=== PATIENT | female | born 1995 | race Caucasian/White ===

== ENCOUNTER 2019-10-06 09:43 | Outpatient (CLI) | payer MEDICAID, SELFPAY ==
--- NOTE | 2019-10-06 10:42 | MR_ITS ---
WS: [id number] MRI BRAIN/orbits WITH AND WITHOUT CONTRAST HISTORY: PSEUDOTUMOR, LEFT vision loss and headaches. COMPARISON: CT head 12/04/2013. TECHNIQUE: Multiplanar imaging performed through the brain with Prohance 17 ml's IV. No acute infarcts are seen. Rojas-white matter differentiation is well preserved. No susceptibility artifacts or prior lacunar infarcts. Visualized posterior fossa and brainstem are also normal. No intraocular protrusion of the optic nerve heads. There is no flattening of the posterior globes. T here is slight CSF widening around the LEFT optic nerve, best seen on the axial T2 sequence.. Partial ly empty sella turcica. Ventricles are also slitlike. Mild early tortuosity of the optic nerves. Intr aocular muscles are normal. No enhancement along the optic nerve sheaths. No mass. Postcontrast images are negative for masses or vascular malformations. Dural venous sinuses are normal. Paranasal sinuses: Well aerated with no significant disease. Mastoid air cells: Normal. Calvarium and scalp: Normal. MR/MR head orbits wo/w* 03162/[id number] IMPRESSION: 1. There are MRI imaging features suggestive of mild idiopathic intracranial h ypertension. 2. No mass or abnormal enhancement. 3. No significant atrophy.
== END 2019-10-06 09:44 | disposition home or self-care (01) ==
LOC: RADSHAW 09:47
PROVIDERS: Family Provider Family Medicine; PCP Family Medicine; Visit Provider Ophthalmology
DX: G93.2 Benign intracranial hypertension (principal)
CPT/HCPCS: 70543; 70553; A9579

== ENCOUNTER → 2019-10-25 10:42 | Day surgery (SDC) | payer MEDICAID, SELFPAY ==
[2019-10-25 11:31] VITALS: BMI 41.3
[2019-10-25 11:32] VITALS: BP 152/78; PULSE 78; RESP 18; TEMP 37.2; O2SAT 98
--- NOTE | 2019-10-25 12:04 | ANES.PREANE2 ---
Pre-Anesthetic Assessment Pre-Anesthetic Assessment: Height/Weight: Height 1.8 m Weight 134.263 kg Temp Pulse Resp BP Pulse Ox 99.0 F 78 18 152/78 98 10/25/19 11:32 10/25/19 11:32 10/25/19 11:32 10/25/19 11:32 10/25/19 11:32 Preop Diagnosis: papilledema Proposed Procedure: spinal tap Last Intake: 23:00 Social: Packs per day: 1/2 Pack years: 09/18 Exam: Pre-Anes Outpt Exam: alert, oriented x 3, clear to auscultation bilaterally and regular rate & rhythm Airway: Submandibular: WNL Cervical ROM: WNL MP: 1 Dentition: Caps Musc/skel: Musc/skel: Lower Back Pain Neuropsych: Neuropsych: CRUMP Anesthetic Plan: ASA status: 3 Anesthesia: Nurse-admin mod sedation PFSH Anesthesia PFSH: Family History (Updated 10/25/19 @ 11:41 by Shreya Silva) Other Arthritis Cervical cancer Diabetes Social History (Updated 10/25/19 @ 11:41 by Shreya Silva) Smoking and tobacco status: never smoked Data Anesthesia Cardiac Studies: No Data to Display
[2019-10-25 12:30] VITALS: BP 152/78; PULSE 78; RESP 18; TEMP 37.2; O2SAT 98
[2019-10-25] MEDS: sodium chloride 0.9% 1,000 ML 30 ML IV (12:40)
[2019-10-25] MEDS: midazolam 1 mg/mL INJ 5 ML 5 MG IVP (12:51)
[2019-10-25 12:53] VITALS: RESP 18; O2SAT 97
[2019-10-25] MEDS: fentaNYL 50 mcg/mL INJ 2mL 100 MCG IVP (12:53)
--- NOTE | 2019-10-25 13:20 | P.ANES_ITS ---
Anesthesia Procedures Procedure/Date: 10/25/19 Spinal tap for Opening CSF pressures Procedure Narrative: Requested by Dr. Mathias to perform a spinal tap for opening CSF pressures. Complete h&P, no anticoagulants/bleeding disorders. R&B's of spinal tap disc'd. Verbal and written consent obtained. Pt requested sedation. Versed 2+1+1+1mg, Fentanyl 50+50ug. Approximately L34 attempted without success. Performed at L45 without difficulty. 22g needle. Opening pressu re [address] Mathias notified. Pt kept supine/motionless for 40 minutes. Lumbar Puncture: Time Out Performed: Yes Consent: requested by attending/covering physician, from patient, risks and benefits reviewed and patient agrees to proceed Patient Position: left lateral decubitus Skin Prep: Povidone-Iodine 1% Local anesthetic used: Lidocaine 1% Amount of anesthesia used (mL): 5 Spinal Needle Gauge: 22G Interspace Used: L4-L5 Opening Pressure (cmH20): 22 Fluid Initially Obtained: bloody Complications: none
[2019-10-25 14:00] VITALS: BP 152/78; PULSE 78; RESP 18; TEMP 37.2; O2SAT 98
[2022-04-18] VITALS (8 sets, daily range): BP systolic 127–138; BP diastolic 59–65; PULSE 72–80; RESP 17; TEMP 36.1
[2022-04-19 10:22] VITALS: BP 120/76; PULSE 97; TEMP 36.2
== END ==
PROVIDERS: Family Provider Family Medicine; PCP Family Medicine; Visit Provider Family Medicine
DX: H47.10 Unspecified papilledema (principal)
CPT/HCPCS: 62270; 96374; 96375; J0330; J1885; J2250; J2704; J3010; J3535; J7030

== ENCOUNTER 2019-10-25 19:12 | Emergency (ER) | payer MEDICAID, SELFPAY ==
[2019-10-25 19:15] VITALS: BP 151/82; PULSE 94; RESP 18; TEMP 36.7; O2SAT 96; BMI 37.0
--- NOTE | 2019-10-25 23:29 | PC.NURSE ---
Called for patient to take back to room for evaluation, no answer at [phone]
== END 2019-10-25 23:41 | disposition left against medical advice (07) ==
LOC: ER 20:33
PROVIDERS: Emergency Provider Emergency Medicine; Family Provider Family Medicine; PCP Family Medicine
DX: Z53.21 Procedure and treatment not carried out due to patient leaving prior to being seen by health care provider (principal)
CPT/HCPCS: 99281

== ENCOUNTER 2019-12-15 19:51 | Emergency (ER) | payer MEDICAID, SELFPAY ==
[2019-12-15 19:53] VITALS: BP 149/91; PULSE 78; RESP 16; TEMP 36.8; O2SAT 97; BMI 40.4
--- NOTE | 2019-12-15 19:56 | W.ED.ABDPA2 ---
HPI - Abdominal Pain General: Chief Complaint: Abdominal Pain Stated Complaint: abd pain Time Seen by Provider: 12/15/19 19:56 Source: patient Mode of arrival: ambulatory Limitations: no limitations History of Present Illness: HPI narrative: 24-year-old female comes in today with complaints of pelvic pain and discomfort. Patient reports she has been having some mild cramping for the last 5 days. Patient is 10 weeks . Patient states that 4 days ago she had some mild bleeding but it passed and she thought it might not be abnormal. Today she started having more increased abdominal discomfort. Patient appears well. Patient appears in mild pain. Patient sees Dr. Mathias for her obstetric care. Patient reports 6 pregnancies with 3 live births. MD elicited complaint: abdominal pain Related Data: Date of Last Menstrual Period: 09/11/19 Review of Systems General: Reports: 10 or more systems reviewed and unremarkable except in HPI and below : Reports: pelvic pain PFSH ED PFSH: Family History (Updated 10/25/19 @ 11:41 by Shreya Silva) Other Arthritis Cervical cancer Diabetes Social History (Updated 10/25/19 @ 11:41 by Shreya Silva) Smoking and tobacco status: current every day smoker Female Reproductive History: Date of last menstrual period: 09/11/19 Physical Exam Const: COMMON NORMALS: no apparent distress and oriented x3 GENERAL APPEARANCE: cooperative HENMT: COMMON NORMALS: normocephalic, external ears normal, EAC's normal, TM's normal bilaterally and external nose normal HEAD & SCALP: normal to inspection and normocephalic FACE & SINUS: normal facial exam NOSE: external nose normal GENERAL EAR: hearing not grossly impaired EXTERNAL EAR: Yes external ears normal EXTERNAL AUDITORY CANAL: EAC's normal TYMPANIC MEMBRANE: TM's normal bilaterally MOUTH: oral and palatal mucosa normal THROAT: posterior oropharynx normal Eye: COMMON NORMALS: PERRL and EOMs intact bilaterally PUPIL: Yes PERRL Neck/C-Spine: COMMON NORMALS: full ROM and no lymphadenopathy Lymph: LYMPHATIC: no lymphedema noted Chest: COMMONS NORMALS: inspection of chest normal and palpation of chest normal Resp: COMMON NORMALS: normal respiratory effort and clear to auscultation bilaterally AUSCULTATION: clear to auscultation bilaterally Cardio: COMMON NORMALS: regular rate and regular rhythm RATE: regular rate RHYTHM: regular rhythm GI: COMMON NORMALS: normal to inspection, nondistended, normoactive bowel sounds and non-tender : COMMON NORMALS: Yes no CVA tenderness BLADDER/KIDNEY EXAM: Yes no CVA tenderness Back/Pelvis: COMMON NORMALS: no CVA tenderness and thoracic and lumbar spine normal to inspection Extremity: COMMON NORMALS: normal to inspection GENERAL: No edema Neuro: COMMON NORMALS: oriented x3, moves all extremities and no focal motor deficits Psych: COMMON NORMALS: mental status grossly normal and cooperative Skin: COMMON NORMALS: no rashes or lesions noted GENERAL SKIN EXAM: no rashes or lesions noted Course Vital Signs: Vital signs: Vital Signs Temperature 98.2 F 12/15/19 19:53 Pulse Rate 80 12/15/19 21:57 Respiratory Rate 16 12/15/19 19:53 Blood Pressure 130/63 12/15/19 21:57 Pulse Oximetry 100 12/15/19 21:57 MDM - Abdominal Pain MDM Narrative: Medical decision making narrative: Patient comes in today with complaints of pelvic discomfort. Patient reported pelvic discomfort started about 5 days ago. Patient had one episode of bleeding that was noted. Patient believes she is about 10 weeks . Respirations are even lungs are clear to auscultation. Abdomen soft nontender. No CVA tenderness. Patient moves all extremities well. Vital signs are normal. Differential diagnosis includes threatened , urinary tract infection, renal calculi. Lab appears well, Sodium is noted to mildly low, urine notes some light rbc's but no wbc's. Patient was given one liter of NS, encourage fluids and healthy diet. Recommend f/u with primary care. Patient reports understanding Lab Data: Labs: Lab Results 12/15/19 12/15/19 12/15/19 Range/Units 20:25 20:25 20:25 WBC 9.6 (4.0-10.0) 10^3/ uL RBC 4.33 (4.1-5.3) 10^6/u L Hgb 13.1 (11.5-15.3) g/dL Hct 41.0 (37.0-47.0) % MCV 94.7 (81-99) fL MCH 30.3 (28.0-34.0) pg MCHC 32.0 (30.0-36.0) g/dL RDW 13.0 (12.1-15.1) % Plt Count 381 (130-400) 10^3/c mm MPV 9.6 (7.4-10.4) fL Neut % (Auto) 66.5 % Lymph % (Auto) 28.1 % [place] % (Auto) 4.0 % Eos % (Auto) 1.0 % Baso % (Auto) 0.2 % Neut # (Auto) 6.4 (1.8-7.7) 10^3/u L Lymph # (Auto) 2.7 (0.8-4.8) 10^3/u L [place] # (Auto) 0.4 (0.2-0.9) 10^3/u L Eos # (Auto) 0.1 (0.0-0.8) 10^3/u L Baso # (Auto) 0.0 (0.0-0.1) 10^3/u L Nucleated RBC % (a uto) 0 % Nucleated RBCs # 0.0 /100WBC Sodium 134 L (136-145) mmol/L Potassium 3.8 (3.5-5.1) mmol/L Chloride 99 (98-107) mmol/L Carbon Dioxide 22 (22-29) mmol/L Anion Gap 16.8 (5-19) BUN 11 (6-20) mg/dL Creatinine 0.6 (0.5-0.9) mg/dL GFR Calculation 121.8 (90-130) mL/min Glucose 125 H (65-115) mg/dL Calculated Osmolal ity 276 L (285-295) mOsm/k g Calcium 10.0 (8.5-10.5) mg/dL Total Bilirubin 0.2 (0.15-1.2) mg/dL AST 20 (0-32) U/L ALT 15 (0-33) U/L Alkaline Phosphata se 73 (35-105) IU/L Total Protein 7.3 (6.6-8.7) g/dL Albumin 4.2 (3.5-5.2) g/dL Globulin 3.1 (1.3-4.6) g/dL Ser , [place] [address].00 mIU/mL Urine Color (Yellow) Urine Appearance (CLEAR) Urine pH (5-7) Ur Specific Gravit y (1.005-1.030) Urine Protein (Negative) Urine Glucose (UA) (Normal) Urine Ketones (Negative) Urine Blood (Negative) Urine Nitrate (Negative) Urine Bilirubin (NEGATIVE) Urine Urobilinogen (Negative) mg/dL Ur Leukocyte Preeti ase (Negative) Urine RBC (0-2) /hpf Urine WBC (0-5) /hpf Ur Squamous Epith Cells (0-5) Urine Bacteria (NONE) Blood Type A Positive Rho(D) Type Positive 12/15/19 Range/Units 20:30 WBC (4.0-10.0) 10^3/ uL RBC (4.1-5.3) 10^6/u L Hgb (11.5-15.3) g/dL Hct (37.0-47.0) % MCV (81-99) fL MCH (28.0-34.0) pg MCHC (30.0-36.0) g/dL RDW (12.1-15.1) % Plt Count (130-400) 10^3/c mm MPV (7.4-10.4) fL Neut % (Auto) % Lymph % (Auto) % [place] % (Auto) % Eos % (Auto) % Baso % (Auto) % Neut # (Auto) (1.8-7.7) 10^3/u L Lymph # (Auto) (0.8-4.8) 10^3/u L [place] # (Auto) (0.2-0.9) 10^3/u L Eos # (Auto) (0.0-0.8) 10^3/u L Baso # (Auto) (0.0-0.1) 10^3/u L Nucleated RBC % (a uto) % Nucleated RBCs # /100WBC Sodium (136-145) mmol/L Potassium (3.5-5.1) mmol/L Chloride (98-107) mmol/L Carbon Dioxide (22-29) mmol/L Anion Gap (5-19) BUN (6-20) mg/dL Creatinine (0.5-0.9) mg/dL GFR Calculation (90-130) mL/min Glucose (65-115) mg/dL Calculated Osmolal ity (285-295) mOsm/k g Calcium (8.5-10.5) mg/dL Total Bilirubin (0.15-1.2) mg/dL AST (0-32) U/L ALT (0-33) U/L Alkaline Phosphata se (35-105) IU/L Total Protein (6.6-8.7) g/dL Albumin (3.5-5.2) g/dL Globulin (1.3-4.6) g/dL Ser , Sharif i-Qnt mIU/mL Urine Color Yellow (Yellow) Urine Appearance Clear (CLEAR) Urine pH 5 (5-7) Ur Specific Gravit y 1.020 (1.005-1.030) Urine Protein Neg (Negative) Urine Glucose (UA) Norm (Normal) Urine Ketones Negative (Negative) Urine Blood 2+ H (Negative) Urine Nitrate Negative (Negative) Urine Bilirubin Neg (NEGATIVE) Urine Urobilinogen Norm (Negative) mg/dL Ur Leukocyte Pereti ase Negative (Negative) Urine RBC 5-10 H (0-2) /hpf Urine WBC None (0-5) /hpf Ur Squamous Epith Cells 10-15 H (0-5) Urine Bacteria Trace (NONE) Blood Type Rho(D) Type Discharge Plan Discharge Patient Disposition: Home, Self-Care Clinical Impression: Threatened in early Condition: Stable Prescriptions: New ondansetron HCl 4 mg tablet 4 mg PO Q8H PRN (Reason: nausea and vomiting) Qty: 10 RF: 0 No Action prenat.vits,alison,[id number] Tablet 1 tab PO DAILY RF: 0 Durezol 0.05 % drops See Rx Instructions .ROUTE .COMPLEX RF: 0 ibuprofen 200 mg Tablet 800 mg PO Q6H PRN (Reason: Headache) RF: 0 acetaminophen [Acetaminophen Extra Strength] 500 mg Tablet 500 mg PO Q6H PRN (Reason: Headache) RF: 0 Discharge Orders: Discharge Order (Routine); Ordered 12/15/19 Ordered By: Conrad Mejía Referrals: Marvin Mathias MD [Primary Care Provider] - Conrad Vera [Family Provider] - Discharge Diet: Usual diet Discharge Activity: Increase activity as tolerated Patient Instructions: Threatened Miscarriage (ED) Activity Restrictions/Additional Instructions: Drink plenty of fluids Healthy diet and exercise Pelvic rest for any bleeding Return to ER for worsening pain, fever, increase in bleeding more than 1 pad within one hour Follow-up with primary care office in morning for appointment follow-up Coding Level of Care Code ED Knot Cutter for Chg Fwd Exam Comprehensive
--- NOTE | 2019-12-15 20:01 | US_ITS ---
WS: [id number] EARLY OBSTETRICAL ULTRASOUND (<14 WEEKS). HISTORY: viability, abd cramping, bleeding COMPARISON: None available. Single intrauterine gestational sac is identified. Cardiac activity at 189 BPM. [place]-rump length albert sures 2.0 cm which corresponds to a gestation of 8 weeks 4 days. Normal-appearing yolk sac and amnion demonstrated. No subchorionic hemorrhage. No free fluid. Neither ovary is very well seen. US/US OB limited [id number] IMPRESSION: 1. Single intrauterine gestation of 8 weeks 4 days with an EDC of 07/22/2020. 2. Normal cardiac activity.
[2019-12-15 20:40] LABS: Basophils % 0.2 %; Eosinophils # 0.1 10^3/uL (0.0-0.8); Hemoglobin 13.1 g/dL (11.5-15.3); Lymphocytes # 2.7 10^3/uL (0.8-4.8); Lymphocytes % 28.1 %; Mean Corpuscular Hemoglobin 30.3 pg (28.0-34.0); Mean Corpuscular Volume 94.7 fL (81-99); Mean Platelet Volume 9.6 fL (7.4-10.4); Monocytes # 0.4 10^3/uL (0.2-0.9); Neutrophils # 6.4 10^3/uL (1.8-7.7); Neutrophils % 66.5 %; Nucleated Red Blood Cells % 0 %; Platelet Count 381 10^3/cmm (130-400); Red Blood Count 4.33 10^6/uL (4.1-5.3); White Blood Count 9.6 10^3/uL (4.0-10.0)
[2019-12-15 20:50] LABS: Add Urine Microscopic? YES; Bilirubin Urine Neg (NEGATIVE); Blood Urine 2+ (Negative); Glucose Urine UA Norm (Normal); Ketones Urine Negative (Negative); Leukocyte Esterase Urine Negative (Negative); Nitrate Urine Negative (Negative); Protein Urine Neg (Negative); Urine Appearance Clear (CLEAR); Urine Color Yellow (Yellow); Urobilinogen Urine Norm (Negative); pH Urine 5 (5-7)
[2019-12-15 21:14] LABS: Alanine Aminotransferase 15 U/L (0-33); Albumin Level 4.2 g/dL (3.5-5.2); Alkaline Phosphatase 73 IU/L (35-105); Anion Gap 16.8 (5-19); Aspartate Amino Transferase 20 U/L (0-32); Blood Urea Nitrogen 11 mg/dL (6-20); Carbon Dioxide 22 mmol/L (22-29); Chloride 99 mmol/L (98-107); Globulin 3.1 g/dL (1.3-4.6); Glomerular Filtration Rate 121.8 mL/min (90-130); Glucose 125 mg/dL (65-115); Osmolality Calculated 276 mOsm/kg (285-295); Potassium 3.8 mmol/L (3.5-5.1); Sodium 134 mmol/L (136-145); Total Bilirubin 0.2 mg/dL (0.15-1.2); Total Protein 7.3 g/dL (6.6-8.7)
[2019-12-15 21:30] LABS: Add Urine Culture? No; Bacteria Urine TRACE
[2019-12-15] MEDS: sodium chloride 0.9% 1,000 ML 999 ML IV (21:48)
[2019-12-15] MEDS: ondansetron 2 mg/ML SDV 2 mL 4 MG IVP (21:54)
[2019-12-15 21:57] VITALS: BP 130/63; PULSE 80; O2SAT 100
[2019-12-15 22:56] VITALS: BP 131/67; PULSE 66; RESP 18; O2SAT 100
== END 2019-12-15 22:58 | disposition home or self-care (01) ==
PROVIDERS: Emergency Provider Nurse Practitioner Family; Family Provider Family Medicine; PCP Family Medicine
DX: O20.0 Threatened abortion (principal); Z3A.10 10 weeks gestation of pregnancy
CPT/HCPCS: 12345; 36415; 76815; 80053; 81001; 84702; 85025; 86900; 87491; 87591; 96361; 96374; 96375; 99283; 99284; J2405; J7030

== ENCOUNTER 2020-06-01 19:31 | Outpatient (CLI) | payer MEDICAID, SELFPAY ==
[2020-06-01 19:31] VITALS: BMI 43.4
[2020-06-01 19:47] VITALS: BP 118/56; PULSE 77
[2020-06-01 19:49] VITALS: RESP 18; TEMP 37.3
[2020-06-01 20:38] LABS: Nitrazine Paper, PH Negative
== END 2020-06-01 21:03 | disposition home or self-care (01) ==
LOC: OPOB 19:31 → OBGYN 19:32
PROVIDERS: Family Provider Family Medicine; PCP Family Medicine; Visit Provider Family Medicine
DX: O26.899 Other specified pregnancy related conditions, unspecified trimester (principal); Z3A.00 Weeks of gestation of pregnancy not specified; N89.8 Other specified noninflammatory disorders of vagina
CPT/HCPCS: 59025; 83986; 99211

== ENCOUNTER 2020-06-03 04:44 | Emergency (ER) | payer MEDICAID, SELFPAY ==
[2020-06-03 04:48] VITALS: BP 139/83; PULSE 84; RESP 20; TEMP 36.2; O2SAT 96; BMI 42.5
--- NOTE | 2020-06-03 04:58 | ED_ITS ---
HPI - General Adult General: Chief complaint: General Medical Stated complaint: hemeroid pain/thinks theres a clot Time Seen by Provider: 06/03/20 04:46 Source: patient Mode of arrival: ambulatory Limitations: no limitations History of Present Illness: HPI narrative: 4-year-old female who is currently 33 weeks states she has had a hemorrhoid over the last 4 days. States hemorrhoid is quite painful and is gotten to be worsening pain. States pain is sharp in nature and rates it a 7 out of 10. Denies any vomiting or diarrhea. She denies any constipation. Associated symptoms: Deny chest pain, dyspnea, headache(s), nausea, rash or vomiting Review of Systems 2 Const: Denies: fever(s), chills, body aches or change in appetite Eyes: Denies: blurry vision or eye discomfort ENMT: Denies: throat pain or dental pain Card: Denies: chest pain Resp: Denies: dyspnea GI: Reports: rectal pain; Denies: abdominal pain, nausea, vomiting or diarrhea : Denies: dysuria Musc: Denies: neck pain or back pain Skin/Breast: Denies: rash Neuro: Denies: headache(s) Psych: Denies: depression Ashok/Lymph: Denies: easy bruising All/Imm: Denies: urticaria PFSH ED PFSH: Family History (Updated 10/25/19 @ 11:41 by Shreya Silva) Other Arthritis Cervical cancer Diabetes Social History (Updated 10/25/19 @ 11:41 by Shreya Silva) Smoking and tobacco status: current every day smoker Female Reproductive History: Date of last menstrual period: 09/11/19 Physical Exam Const: COMMON NORMALS: no acute distress, patient oriented x3 and healthy appearing HENMT: COMMON NORMALS: normocephalic and atraumatic HEAD & SCALP: normocephalic and atraumatic Eye: COMMON NORMALS: Equal, round and reactive pupils present and EOMs intact bilaterally PUPIL: Yes Equal, round and reactive pupils present Neck/C-Spine: COMMON NORMALS: full ROM and supple Chest: COMMONS NORMALS: normal inspection of the chest and normal palpation of entire chest wall Resp: COMMON NORMALS: normal respiratory effort, No retractions, No use of accessory muscles and clear to auscultation bilaterally AUSCULTATION: clear to auscultation bilaterally Cardio: COMMON NORMALS: regular rate, regular rhythm and No murmurs present (Cardio) RATE: regular rate RHYTHM: regular rhythm GI: COMMON NORMALS: Normal to inspection, nondistended, normoactive bowel sounds present, Soft to palpation, non-tender and no masses PALPATION: Yes Soft to palpation : OTHER: Thrombosed hemorrhoid noted Extremity: COMMON NORMALS: normal to inspection and full ROM Neuro: COMMON NORMALS: patient oriented x3, moves all extremities and no focal motor deficits Psych: COMMON NORMALS: mental status grossly normal, Normal thought process present and cooperative THOUGHT PROCESS: Normal thought process present Skin: COMMON NORMALS: no rashes or lesions noted and no wounds GENERAL SKIN EXAM: no rashes or lesions noted Course ED course: Procedure note for thrombosed hemorrhoid. Patient had EMLA cream applied and then 10 cc of lidocaine and bupivacaine injected into the thrombosed hemorrhoid. Elliptical incision was made and clot was expressed. Patient had minimal bleeding and tolerated procedure well. Vital Signs: Vital signs: Vital Signs Temperature 97.2 F L 06/03/20 04:48 Pulse Rate 84 06/03/20 04:48 Respiratory Rate 20 H 06/03/20 04:48 Blood Pressure 139/83 06/03/20 04:48 Pulse Oximetry 96 06/03/20 04:48 MDM - General Adult MDM Narrative: Medical decision making narrative: Patient presents here with a thrombosed hemorrhoid in the ER. The clot was removed within incision. Patient placed on Proctofoam. She is stable for discharge is return if worsening. She understands agrees to plan. Discharge Plan Discharge Patient Disposition: Home Clinical Impression: Hemorrhoid thrombosis Condition: Stable Prescriptions: New Proctofoam HC 1-1 % foam 1 applic DC BID PRN (Reason: hemorrhoids) Qty: 10 RF: 0 No Action prenat.vits,alison,[id number] Tablet 1 tab PO DAILY RF: 0 Discharge Orders: Discharge Order (Routine); Ordered 06/03/20 Ordered By: Tania Phelan Referrals: Marvin Mathias MD [Primary Care Provider] - Conrad Vera [Family Provider] - Discharge Diet: Advance as tolerated Discharge Activity: Resume usual activity Coding Level of Care Code ED Instructional Support Services Director for Chg Fwd Exam Comprehensive
[2020-06-03] MEDS: lidocaine-prilocaine cream 5 gm 1 APPLIC TOPICAL (05:10)
== END 2020-06-03 05:51 | disposition home or self-care (01) ==
PROVIDERS: Emergency Provider Emergency Medicine; Family Provider Family Medicine; PCP Family Medicine
DX: K64.5 Perianal venous thrombosis (principal); F17.210 Nicotine dependence, cigarettes, uncomplicated
CPT/HCPCS: 12345; 96372; 99281; 99282; J3490

== ENCOUNTER 2020-06-23 16:32 | Outpatient (CLI) | payer MEDICAID, SELFPAY ==
[2020-06-23] VITALS (39 sets, daily range): BP systolic 0–182; BP diastolic 0–93; PULSE 72–102; RESP 16; TEMP 36.7–37.3; BMI 44.9
[2020-06-23 17:36] LABS: Basophils % 0.2 %; Eosinophils # 0.1 10^3/uL (0.0-0.8); Eosinophils % 0.8 %; Hematocrit 38.1 % (37.0-47.0); Lymphocytes # 2.2 10^3/uL (0.8-4.8); Lymphocytes % 22.3 %; Mean Corpuscular HGB Conc 31.5 g/dL (30.0-36.0); Mean Corpuscular Hemoglobin 29.1 pg (28.0-34.0); Mean Corpuscular Volume 92.5 fL (81-99); Mean Platelet Volume 10.9 fL (7.4-10.4); Monocytes # 0.7 10^3/uL (0.2-0.9); Monocytes % 6.9 %; Neutrophils # 6.67 10^3/uL (1.8-7.7); Nucleated Red Blood Cells % 0 %; Platelet Count 302 10^3/cmm (130-400); Red Blood Count 4.12 10^6/uL (4.1-5.3); Red Cell Distribution Width 14.5 % (12.1-15.1); White Blood Count 9.7 10^3/uL (4.0-10.0)
[2020-06-23 17:52] LABS: Alanine Aminotransferase 13 U/L (0-33); Albumin Level 3.4 g/dL (3.5-5.2); Alkaline Phosphatase 145 IU/L (35-105); Anion Gap 13.9 (5-19); Aspartate Amino Transferase 19 U/L (0-32); Blood Urea Nitrogen 8 mg/dL (6-20); Calcium 9.6 mg/dL (8.5-10.5); Carbon Dioxide 23 mmol/L (22-29); Chloride 102 mmol/L (98-107); Globulin 3.3 g/dL (1.3-4.6); Glomerular Filtration Rate 194.5 mL/min (90-130); Glucose 116 mg/dL (65-115); Osmolality Calculated 279 mOsm/kg (285-295); Potassium 3.9 mmol/L (3.5-5.1); Sodium 135 mmol/L (136-145); Total Bilirubin 0.2 mg/dL (0.15-1.2); Total Protein 6.7 g/dL (6.6-8.7); Uric Acid 4.1 mg/dL (2.4-5.7)
[2020-06-23 18:01] LABS: Urine Creatinine 66 mg/dL (28-217); Urine Protein Random 9 mg/dL
[2020-06-23 18:04] LABS: UPRO/UCREAT Ratio 0.14 mg/mg CR
[2020-06-23 18:08] LABS: Add Urine Microscopic? YES; Bilirubin Urine Neg (Negative); Blood Urine 2+ (Negative); Glucose Urine UA Norm (Normal); Ketones Urine Negative (Negative); Leukocyte Esterase Urine Negative (Negative); Nitrate Urine Negative (Negative); Protein Urine Neg (Negative); Specific Gravity, Urine 1.015 (1.005-1.030); Urine Appearance Clear (CLEAR); Urine Color Yellow (Yellow); Urobilinogen Urine Norm (Negative); pH Urine 6.5 (5-7)
[2020-06-23 18:10] LABS: Add Urine Culture? No; Bacteria Urine 2+ /hpf; Squamous Epithelial Cell Urine 15-25 /hpf (0-5); WBC Urine 0-4 /hpf (0-5)
[2020-06-23] MEDS: labetalol 200 mg Tablet 100 MG PO ×2 (18:42→19:06)
[2020-06-23] MEDS: HYDROcodone-acetaminophen 5-325 mg Tablet 1 TAB PO (18:52)
[2020-06-23] MEDS: miSOPROStol 100 mcg tablet 25 MCG VAGINAL (20:24)
[2020-06-24] VITALS (98 sets, daily range): BP systolic 0–155; BP diastolic 0–126; PULSE 63–101; RESP 16–18; TEMP 36.8–37; O2SAT 97
[2020-06-24] MEDS: miSOPROStol 100 mcg tablet 25 MCG VAGINAL (02:00)
[2020-06-24] MEDS: acetaminophen 325 mg Tablet 650 MG PO ×2 (02:14→09:31)
--- NOTE | 2020-06-24 09:15 | PC.NURSE ---
Dr. Mathias at bedside at this time for SVE. Dr. Mathias reported SVE 3-4cm, 40%, -5 station, Dr. Mathias reports cervix is soft. Received verbal orders at this time to start high dose pitocin and received orders for fentanyl protocol PRN.
[2020-06-24] MEDS: dextrose 5%-lactated ringers 1,000 ML 125 ML IV (09:31)
[2020-06-24] MEDS: oxytocin 30 UNIT/500 ML BAG IV (09:32)
[2020-06-24] MEDS: ondansetron 2 mg/ML SDV 2 mL 4 MG IVP (10:19)
--- NOTE | 2020-06-24 13:45 | PC.NURSE ---
Dr. Mathias at bedside at this time performing SVE. Dr. Mathias reports no new change in SVE, station is still -5 and its unsafe to preform amniotomy. Dr. Mathias discussed stopping induction process with pt. Pt BP have been within normal limits and with pt gestational age being 36.1 the decision was made to turn off pitocin and reevaluate plan of care in a couple of hours. Received orders to stop pitocin and allow pt to eat. Will call Dr. Mathias at 1600 with an update and for further orders. Pt agrees to plan of care.
--- NOTE | 2020-06-24 20:03 | P.SS_ITS ---
Short Stay Summary Providers Date of Admit/Discharge: 06/26/20 Attending Provider: Marvin Mathias MD Primary Care Provider: Marvin Mathias MD Chief Complaint: Hypertension, R/O preeclampsia HPI History of Present Illness Elen Hurley is a 24 year old 3 female at 36 weeks estimated gestational age presented to the hospital due to having high blood pressures in the office. She had 2-3 blood pressures in the office where her systolic blood pressure was around 160. She was then brought to the OB floor where she was evaluated. She had multiple blood pressures that were performed over several hours that once again demonstrated several systolic blood pressures that were over 160s and even had some that were over 180. In addition to that she had arrived to my office because she was having a new onset headache that is different than she had before in the past. She is noticing visual changes inc luding there are spots in her vision. Her preeclamptic panel was completely negative. But due to her symptoms, I elected to proceed with induction because she did have preeclampsia with severe features based on her headache, her visual changes, and her new onset blood pressure. She is given labetalol, and she did have some improvement of her blood pressure. Review of Systems General: Reports: 10 or more systems reviewed and unremarkable except in HPI and below Const: Denies: fever(s) Eyes: Reports: change in vision Card: Reports: swelling of feet/ankles; Denies: chest pain or irregular heart rhythm Resp: Denies: dyspnea Neuro: Reports: headache(s) Home Meds/Allergies Home Medications and Allergies Home Medications Medication Instructions Recorded Confirmed Type prenat.vits,alison,[id number] 1 tab PO DAILY 11/22/19 06/23/20 History Allergies Allergy/AdvReac Type Severity Reaction Status Date / Time Penicillins Allergy ALGY-Anaphy Verified 06/01/20 19:46 laxis PFSH Acute PFSH: Family History (Updated 10/25/19 @ 11:41 by Shreya Silva) Other Arthritis Cervical cancer Diabetes Social History (Updated 10/25/19 @ 11:41 by Shreya Silva) Smoking and tobacco status: current every day smoker Female Reproductive History: Date of last menstrual period: 09/11/19 : 8 Vitals/I&O/Wt Last Vital Signs Temp 98.3 F 06/24/20 16:50 Pulse 83 06/24/20 16:50 Resp 16 06/24/20 16:50 BP 128/94 06/24/20 16:50 Pulse Ox 97 06/24/20 02:45 06/24/20 06/24/20 06/24/20 06:59 14:59 22:59 Intake Total 25.717 / 25.717 Balance 25.717 / 25.717 Weight last 48 hrs Weight 322 lb Physical Exam Const: COMMON NORMALS: no acute distress and patient oriented x3 GENERAL APPEARANCE: cooperative, comfortable and well developed HENMT: COMMON NORMALS: normocephalic and moist oral mucous membranes HEAD & SCALP: normocephalic Chest: COMMONS NORMALS: normal inspection of the chest Resp: COMMON NORMALS: normal respiratory effort and clear to auscultation bilaterally AUSCULTATION: clear to auscultation bilaterally Cardio: COMMON NORMALS: regular rate, regular rhythm, No gallops present (Cardio), No murmurs present (Cardio) and No rub (Cardio) RATE: regular rate RHYTHM: regular rhythm Extremity: COMMON NORMALS: negative for no pedal edema (Trace to 1+ edema) Neuro: COMMON NORMALS: patient oriented x3 and no focal motor deficits Skin: COMMON NORMALS: no rashes or lesions noted GENERAL SKIN EXAM: no rashes or lesions noted Hospital Course Hospital Course: She was admitted to the hospital for induction due to her elevated blood pressures. Her blood pressures did improve dramatically after induction. Her headache resolved. And despite putting on Cytotec 25 mcg x 2 and ramping up her Pitocin over period of hours, she continued have a cervix dannie t was very high, and she was not amenable to an amniotomy. Because all the symptoms that initially caused to believe that she had preeclampsia had resolved, and due to the fact that she was not responding well to induction, I elected to stop the induction and send her home with the understanding that she may come back later or may have more consistent symptoms in the future that would cause us to proceed with induction. SSS Data Data Completed and Pending: Pending at discharge Category Date Time Status PTC COVID [M[place]ragon virus Lab Test PTC ] Routine Lab 06/23/20 21:50 Received Discharge Plan Discharge Patient Disposition: Home Prescriptions: Continued prenat.vits,alison,[id number] Tablet 1 tab PO DAILY RF: 0 Discharge Orders: Discharge Order (Routine); Ordered 06/24/20 Ordered By: Marvin Mathias Patient Instructions: Labor (DC), Pre-eclampsia and Eclampsia (DC), OB Undelivered Discharge Activity Restrictions/Additional Instructions: Follow up with Dr. Mathias this week. Return sooner if you having regular painful contractions that are 5 minutes apart or less or if you are having to stop and breathe through them. Return if you have bright red vaginal bleeding, if you are leaking fluid, or if baby is not moving as usual. Return if you have a headache that doesn't go away with tylenol or if you have any changes in your vision. Discharge Date/Time: 06/24/20 16:50 Attestations Medical Necessity Statement*: The patient was initially admitted because she had symptoms of classic preeclampsia. Fortunately, the symptoms resolved during her hospital stay, and she no longer met the criteria necessary to warrant an induction.. In addition she did not respond well to our efforts to induce her. As a result the benefits outweighed the risk of sending her home. Explained this to the patient. She is understandably frustrated. We will see her back in my office this upcoming week. Time Spent in Patient Care*: greater than 30 min Quality Metrics Clinical Quality Measures: During this hospital stay, did patient experience: None Coding Level of Care Code Acute Survey Crew Chief for Milog Fwd Exam Comprehensive
[2020-06-25 15:19] LABS: Coronavirus Lab Test PTC Negative
== END 2020-06-24 16:50 | disposition home or self-care (01) ==
LOC: OPOB 16:33 → OBGYN 16:34 → OPOB 20:57 → OBGYN 06-24 09:53 → OPOB 06-24 17:00
PROVIDERS: Family Provider Family Medicine; PCP Family Medicine; Visit Provider Family Medicine
DX: O16.9 Unspecified maternal hypertension, unspecified trimester (principal); Z3A.00 Weeks of gestation of pregnancy not specified
CPT/HCPCS: 12345; 36415; 59025; 80053; 81001; 82570; 84156; 84550; 85025; 87635; 96375; 99211; J2405; J3370; J7040

== ENCOUNTER 2020-06-25 16:12 | Outpatient (CLI) | payer MEDICAID, SELFPAY ==
[2020-06-25 16:36] VITALS: BP 143/64; PULSE 76
[2020-06-25 16:56] VITALS: BP 125/62; PULSE 74
[2020-06-25 17:12] VITALS: BP 138/70; PULSE 81
[2020-06-25 17:27] VITALS: BP 131/59; PULSE 79
--- NOTE | 2020-06-25 17:29 | USR_ITS ---
PROCEDURE INFORMATION: Exam: US Biophysical Profile Without Non-Stress Test Exam date and time: 06/25/2020 6:01 PM Age: 24 years old Clinical indication: Injury or trauma; Fall; Injury indication: Patient fell due to BP last night. Patient states she is having brown discharge. ; ; Additional info: Recent fall TECHNIQUE: Imaging protocol: US biophysical profile without non-stress testing. COMPARISON: US OB >= 14 weeks fetus [id number] 03/02/2020 2:01 PM FINDINGS: BIOPHYSICAL PROFILE: Breathin/2 Gross body movements: 2/2 tone: 2/2 Qualitative amniotic fluid: 2/2 Biophysical Profile Score: 8/8 US/US OB BPP wo NST [id number] IMPRESSION: 1. Biophysical profile score is 8 out of 8. 2. heart beat 153 bpm. 3. Vertex presentation. 4. Anterior placenta with no placenta previa. 5. Ample amniotic fluid subjectively.
[2020-06-25 17:42] VITALS: BP 133/56; PULSE 72
[2020-06-25 17:57] VITALS: BP 120/54; PULSE 71; BMI 55.4
[2020-06-25 18:13] LABS: Urine Creatinine 91 mg/dL (28-217); Urine Protein Random 9 mg/dL
[2020-06-25] MEDS: HYDROcodone-acetaminophen 5-325 mg Tablet 1 TAB PO (19:15)
== END 2020-06-25 19:20 | disposition home or self-care (01) ==
LOC: OPOB 16:22 → OBGYN 16:23
PROVIDERS: Family Provider Family Medicine; PCP Family Medicine; Visit Provider Family Medicine
DX: O16.9 Unspecified maternal hypertension, unspecified trimester (principal); Z3A.00 Weeks of gestation of pregnancy not specified
CPT/HCPCS: 76819; 82570; 84156; 99211

== ENCOUNTER 2020-06-28 16:40 | Outpatient (CLI) | payer MEDICAID, SELFPAY ==
[2020-06-28 16:48] VITALS: RESP 18; TEMP 36.8
[2020-06-28 16:56] VITALS: BMI 43.2
== END 2020-06-28 17:35 | disposition home or self-care (01) ==
LOC: OPOB 16:46 → OBGYN 16:46
PROVIDERS: Family Provider Family Medicine; PCP Family Medicine; Visit Provider Family Medicine
DX: O36.8190 Decreased fetal movements, unspecified trimester, not applicable or unspecified (principal); Z3A.00 Weeks of gestation of pregnancy not specified
CPT/HCPCS: 59025; 99211

== ENCOUNTER 2020-07-02 19:55 | Inpatient (IN) | payer MEDICAID, SELFPAY ==
[2020-07-02] VITALS (19 sets, daily range): BP systolic 0–147; BP diastolic 0–73; PULSE 69–92; RESP 18; TEMP 37; O2SAT 83–99; BMI 46.0
[2020-07-02 22:45] LABS: Basophils % 0.1 %; Eosinophils # 0.1 10^3/uL (0.0-0.8); Eosinophils % 0.6 %; Hematocrit 38.5 % (37.0-47.0); Lymphocytes # 2.2 10^3/uL (0.8-4.8); Lymphocytes % 23.8 %; Mean Corpuscular HGB Conc 31.2 g/dL (30.0-36.0); Mean Corpuscular Hemoglobin 28.6 pg (28.0-34.0); Mean Corpuscular Volume 91.9 fL (81-99); Mean Platelet Volume 11.2 fL (7.4-10.4); Monocytes # 0.6 10^3/uL (0.2-0.9); Monocytes % 6.9 %; Neutrophils # 6.37 10^3/uL (1.8-7.7); Neutrophils % 68.2 %; Nucleated Red Blood Cells % 0 %; Platelet Count 254 10^3/cmm (130-400); Red Blood Count 4.19 10^6/uL (4.1-5.3); Red Cell Distribution Width 14.4 % (12.1-15.1); White Blood Count 9.3 10^3/uL (4.0-10.0)
[2020-07-02] MEDS: miSOPROStol 100 mcg tablet 25 MCG VAGINAL (22:46)
[2020-07-02 22:56] LABS: Alanine Aminotransferase 12 U/L (0-33); Albumin Level 3.3 g/dL (3.5-5.2); Alkaline Phosphatase 144 IU/L (35-105); Anion Gap 16.8 (5-19); Aspartate Amino Transferase 20 U/L (0-32); Blood Urea Nitrogen 12 mg/dL (6-20); Calcium 9.3 mg/dL (8.5-10.5); Carbon Dioxide 21 mmol/L (22-29); Chloride 104 mmol/L (98-107); Globulin 3.5 g/dL (1.3-4.6); Glomerular Filtration Rate 150.3 mL/min (90-130); Glucose 89 mg/dL (65-115); Osmolality Calculated 285 mOsm/kg (285-295); Potassium 3.8 mmol/L (3.5-5.1); Sodium 138 mmol/L (136-145); Total Bilirubin 0.2 mg/dL (0.15-1.2); Total Protein 6.8 g/dL (6.6-8.7)
[2020-07-02 23:04] LABS: Add Urine Microscopic? YES; Bilirubin Urine Neg (Negative); Blood Urine 2+ (Negative); Glucose Urine UA Norm (Normal); Ketones Urine Negative (Negative); Leukocyte Esterase Urine Negative (Negative); Nitrate Urine Negative (Negative); Protein Urine Neg (Negative); Specific Gravity, Urine 1.015 (1.005-1.030); Urine Color Yellow (Yellow); Urobilinogen Urine Norm (Negative); pH Urine 6.5 (5-7)
[2020-07-02 23:05] LABS: Add Urine Culture? No; Bacteria Urine TRACE /hpf; Squamous Epithelial Cell Urine 25-40 /hpf (0-5); WBC Urine 0-4 /hpf (0-5)
[2020-07-03] VITALS (79 sets, daily range): BP systolic 0–179; BP diastolic 0–81; PULSE 63–98; RESP 17–18; TEMP 36.7–37.1; O2SAT 85–98
[2020-07-03 00:26] LABS: Urine Creatinine 85 mg/dL (28-217); Urine Protein Random 11 mg/dL
[2020-07-03 00:35] LABS: UPRO/UCREAT Ratio 0.13 mg/mg CR
[2020-07-03] MEDS: miSOPROStol 100 mcg tablet 25 MCG VAGINAL (04:08)
--- NOTE | 2020-07-03 09:09 | PC.RESP ---
SMOKING CESSATION INFORMATION SENT TO PATIENT.
[2020-07-03] MEDS: dextrose 5%-lactated ringers 1,000 ML 125 ML IV (10:15)
[2020-07-03] MEDS: oxytocin 30 UNIT/500 ML BAG IV (10:15)
[2020-07-03] MEDS: ondansetron 2 mg/ML SDV 2 mL 4 MG IVP (12:46)
--- NOTE | 2020-07-03 14:51 | PM.DELIVERY ---
Delivery Note: Date of delivery: July 03, 2020 Pre-Delivery Course: The patient presented to the hospital last night for induction due to elevated blood pressure as well as a history of headaches and visual changes. Currently she only had elevated blood pressure without any visual changes or headaches. Her preeclamptic panel was within normal limits. She did not have any severe blood pressures at this time. She was placed on Cytotec 25 mcg x 2. That was then followed up with an amniotomy, and then later with Pitocin. She progressed to 9 cm without difficulty. Delivery: DELIVERY: The patient progressed to complete without difficulty. She delivered a male with a weight of 9 pounds 7 ounces with Apgars of 8, 9. The baby was delivered from the LAURA position. The baby's mouth and nose were suctioned at the site of the perineum. The baby was then completely delivered and placed on the mother's abdomen. The cord was then clamped and cut. There was no nuchal cord. There was no meconium. The placenta and 3 vessel cord were delivered intact shortly thereafter. The perineum and vaginal vault were carefully examined. No lacerations were noted. Both the mother and the baby were in stable condition. Estimated blood loss was 100 mL A&P Assessment and plan (1) 37 weeks gestation of : Blood pressures improved since delivery of the infant. I am hoping for routine care. We will adjust accordingly if her blood pressure starts to increase again. Status: Acute (2) Preeclampsia: Status: Acute (3) Polyhydramnios affecting : Status: Acute (4) Spontaneous vaginal delivery: Status: Acute Coding Level of Care Code Acute Fiber Optic Assembler for Atul Ellis Diagnoses 37 weeks gestation of Z3A.37 Preeclampsia O14.90 Polyhydramnios affecting O40.9XX0 Spontaneous vaginal delivery O80
[2020-07-03] MEDS: docusate sodium 100 mg Capsule PO (18:32)
[2020-07-03] MEDS: ibuprofen 800 mg tablet PO (18:32)
[2020-07-03] MEDS: acetaminophen 325 mg Tablet 650 MG PO (22:32)
[2020-07-04 00:15] VITALS: BP 108/66; PULSE 77; RESP 18; TEMP 36.8; O2SAT 98
[2020-07-04 03:33] LABS: Hematocrit 35.3 % (37.0-47.0); Hemoglobin 11.1 g/dL (11.5-15.3); Mean Corpuscular HGB Conc 31.4 g/dL (30.0-36.0); Mean Corpuscular Hemoglobin 29.3 pg (28.0-34.0); Mean Corpuscular Volume 93.1 fL (81-99); Mean Platelet Volume 11.1 fL (7.4-10.4); Platelet Count 259 10^3/cmm (130-400); Red Blood Count 3.79 10^6/uL (4.1-5.3); Red Cell Distribution Width 14.4 % (12.1-15.1); White Blood Count 10.2 10^3/uL (4.0-10.0)
[2020-07-04 04:10] VITALS: BP 125/82; PULSE 73; RESP 18; TEMP 36.8
[2020-07-04] MEDS: HYDROcodone-acetaminophen 5-325 mg Tablet PO (04:10)
[2020-07-04 08:15] VITALS: BP 113/69; PULSE 87; RESP 16; TEMP 37; O2SAT 99
[2020-07-04] MEDS: ibuprofen 800 mg tablet PO ×2 (09:14→14:05)
[2020-07-04] MEDS: docusate sodium 100 mg Capsule PO (09:16)
[2020-07-04] MEDS: prenatal vitamin Capsule 1 CAP PO (09:16)
--- NOTE | 2020-07-04 09:46 | PC.NURSE ---
Note This mom reports previous baby having some weight gain issues. She was told her breasts were too small . She was only able to pump 2 oz per breast every 2 hours. She was started on supplementing. This baby is nursing well per her report, I did not see baby nurse. We discussed supply and demand, frequent nursing and ways to increase milk output. Provided her with information on hand expression and the [facility] milk expression website. Talked about power pumping and hands on pumping. Provided contact information.
[2020-07-04 11:23] VITALS: BP 162/74; PULSE 70; RESP 22; TEMP 36; O2SAT 94
--- NOTE | 2020-07-04 17:36 | PM.OBGYDC ---
Discharge Providers PURCHASING SUPERVISOR Date of Admission: 07/02/20 19:55 Date of Discharge: 07/04/20 Attending Provider at Admission: Marvin Mathias MD Attending Provider at Discharge: Marvin Mathias MD Primary Care Provider: Marvin Mathias MD Diagnoses at Discharge Discharge Diagnosis (1) 37 weeks gestation of : Status: Acute (2) Preeclampsia: Status: Acute (3) Polyhydramnios affecting : Status: Acute (4) Spontaneous vaginal delivery: Status: Acute Reason for Visit Reason for Visit: Scheduled Induction Hospital Course Hospital Course: The patient presented to the hospital for induction due to gestational hypertension. Her preeclamptic panel was within normal limits. Her diastolic blood pressures were okay. Her systolic blood pressures were occasionally greater than 140 but overall were below 140. She was initially placed on Cytotec, and amniotomy was performed, the Pitocin was added. Her delivery was unremarkable. Her course has also been unremarkable. Her bleeding has been within normal limits. She has breast-fed well. Her pain is been well controlled. There have been no concerns regarding preeclamptic symptoms. Information Peripartum Data: Infant Delivery Method: Vaginal Physical Exam Narrative: EXAM NARRATIVE: The patient is alert. She appears comfortable. Her heart has a regular rate and rhythm with no murmurs appreciated. Lungs are clear to auscultation bilaterally. Her fundus is firm and below the umbilicus. Discharge Data Data Completed and Pending: Labs from last 24 hours 07/04/20 03:27 WBC 10.2 H RBC 3.79 L Hgb 11.1 L Hct 35.3 L MCV 93.1 MCH 29.3 MCHC 31.4 RDW 14.4 Plt Count 259 MPV 11.1 H Vitals: Last Vital Signs Temp 96.8 F L 07/04/20 11:23 Pulse 70 07/04/20 11:23 Resp 22 H 07/04/20 11:23 BP 162/74 07/04/20 11:23 Pulse Ox 94 07/04/20 11:23 Discharge Plan Discharge Patient Disposition: Home Condition: Stable Prescriptions: New ibuprofen 800 mg Tablet 800 mg PO TID Qty: 30 RF: 0 Continued prenat.vits,alison,chp-mote-trgjj Tablet 1 tab PO DAILY RF: 0 Discharge Orders: Discharge Order (Routine); Ordered 07/04/20 Ordered By: Marvin Mathias Referrals: Marvin Mathias MD [Primary Care Provider] - 1 week Discharge Diet: Usual diet Discharge Activity: Limit activity as instructed Patient Instructions: Bleeding (DC), OB Discharge Report, OB Food/Drug Interaction Guide, OB Home Care, OB Proud Parent Packet, OB Vaginal Deliveries Discharge Attestations PURCHASING SUPERVISOR Time Spent in Discharge Care*: less than 30 min Coding Level of Care Code Acute Enrollment Management Director for Chg Fwd Diagnoses 37 weeks gestation of Z3A.37 Preeclampsia O14.90 Polyhydramnios affecting O40.9XX0 Spontaneous vaginal delivery O80
[2020-07-04 18:44] VITALS: BP 113/78; PULSE 78; RESP 16; TEMP 37.1; O2SAT 99
[2020-07-04 18:45] VITALS: BP 113/78; PULSE 78; RESP 16; TEMP 37.1; O2SAT 99
== END 2020-07-04 18:45 | disposition home or self-care (01) | DRG 807 ==
LOC: OPOB 19:55 → OBGYN 07-03 01:53
PROVIDERS: Admitting Provider Family Medicine; Family Provider Family Medicine; PCP Family Medicine; Visit Provider Family Medicine
DX: O13.4 Gestational [pregnancy-induced] hypertension without significant proteinuria, complicating childbirth (principal); Z37.0 Single live birth; Z3A.37 37 weeks gestation of pregnancy; O40.3XX0 Polyhydramnios, third trimester, not applicable or unspecified
CPT/HCPCS: 12345; 36415; 59409; 80053; 81001; 82570; 84156; 84550; 85025; 85027; 96375; 98960; J2405

== ENCOUNTER 2021-01-24 15:23 | Emergency (ER) | payer BC, MEDICAID, SELFPAY ==
[2021-01-24 15:30] VITALS: BP 145/83; PULSE 97; RESP 18; TEMP 36.2; O2SAT 100; BMI 34.9
[2021-01-24 15:56] VITALS: RESP 16
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
[2021-01-24] MEDS: TRAMadol 50 mg Tablet PO (16:43)
[2021-01-24 17:15] LABS: Rapid Strep A Test Negative (Negative)
[2021-01-24 17:28] VITALS: BP 108/71; PULSE 99; RESP 17; O2SAT 97
[2021-01-24 17:54] LABS: Basophils # 0.1 10^3/uL (0.0-0.1); Basophils % 0.5 %; Eosinophils # 0.1 10^3/uL (0.0-0.8); Eosinophils % 0.6 %; Hematocrit 44.7 % (37.0-47.0); Hemoglobin 13.3 g/dL (11.5-15.3); Lymphocytes # 2.8 10^3/uL (0.8-4.8); Lymphocytes % 19.1 %; Mean Corpuscular HGB Conc 29.8 g/dL (30.0-36.0); Mean Corpuscular Hemoglobin 29.1 pg (28.0-34.0); Mean Corpuscular Volume 97.8 fL (81-99); Mean Platelet Volume 10.1 fL (7.4-10.4); Monocytes # 0.8 10^3/uL (0.2-0.9); Monocytes % 5.3 %; Neutrophils # 10.99 10^3/uL (1.8-7.7); Neutrophils % 74.2 %; Nucleated Red Blood Cells % 0 %; Platelet Count 342 10^3/cmm (130-400); Red Blood Count 4.57 10^6/uL (4.1-5.3); Red Cell Distribution Width 13.9 % (12.1-15.1); White Blood Count 14.8 10^3/uL (4.0-10.0)
[2021-01-24 18:58] LABS: Albumin Level 3.7 g/dL (3.5-5.2); Alkaline Phosphatase 97 IU/L (35-105); Blood Urea Nitrogen 11 mg/dL (6-20); Calcium 8.7 mg/dL (8.5-10.5); Carbon Dioxide 19 mmol/L (22-29); Chloride 100 mmol/L (98-107); Globulin 4.1 g/dL (1.3-4.6); Glomerular Filtration Rate 192.9 mL/min (90-130); Glucose 72 mg/dL (65-115); Osmolality Calculated 276 mOsm/kg (285-295); Sodium 134 mmol/L (136-145); Total Bilirubin 0.4 mg/dL (0.15-1.2); Total Protein 7.8 g/dL (6.6-8.7)
[2021-01-24 18:59] LABS: Anion Gap 19.4 (5-19)
[2021-01-24 19:00] LABS: Aspartate Amino Transferase 27 U/L (0-32); Potassium 4.4 mmol/L (3.5-5.1)
[2021-01-24 19:01] LABS: Alanine Aminotransferase 17 U/L (0-33)
== END 2021-01-24 17:28 | disposition home or self-care (01) ==
PROVIDERS: Nurse Practitioner Family; Emergency Provider Physician Assistant; PCP Family Medicine
DX: R51.9 Headache, unspecified (principal); F17.210 Nicotine dependence, cigarettes, uncomplicated
CPT/HCPCS: 36415; 70486; 80053; 85025; 87081; 87880; 99283

== ENCOUNTER 2022-03-07 15:45 | Outpatient (CLI) | payer BC, MEDICAID, SELFPAY ==
[2022-03-07 16:00] VITALS: BMI 38.0
[2022-03-07 16:21] VITALS: BP 129/60; PULSE 74
[2022-03-07 16:52] VITALS: RESP 18
--- NOTE | 2022-03-07 16:52 | USR_ITS ---
PROCEDURE INFORMATION: Exam: US , Limited Exam date and time: 03/07/2022 6:00 PM Age: 26 years old Clinical indication: Lmp or gestational age (in weeks): 32w3d; Antepartum complications; Bleeding; ; Additional info: Placenta evaluation, kyle TECHNIQUE: Imaging protocol: Real-time ultrasound of the maternal uterus with image documentation. Exam focused on the clinical indication. COMPARISON: [place] [id number] 01/01/2022 11:16 AM FINDINGS: Gestation: Live intrauterine gestation with heart rate of 136 bpm. lie: Breech lie. Placenta: Anterior placenta without placenta previa. Amniotic fluid index: KYLE measures 13.26 cm. MATERNAL: Cervix: Cervix measures 4.2 cm in length. US/US OB limited [id number] IMPRESSION: 1. Anteriorly located placenta without placenta previa. 2. KYLE measurements within normal limits.
[2022-03-07 17:06] VITALS: BP 120/58; PULSE 66
[2022-03-07 17:26] VITALS: BP 130/62; PULSE 71
[2022-03-07 17:46] VITALS: BP 132/61; PULSE 61
[2022-03-07 18:08] VITALS: BP 130/60; PULSE 64
== END 2022-03-07 18:25 | disposition home or self-care (01) ==
LOC: OPOB 15:55 → OBGYN 15:56
PROVIDERS: PCP Family Medicine; Visit Provider Family Medicine
DX: O46.90 Antepartum hemorrhage, unspecified, unspecified trimester (principal); Z3A.00 Weeks of gestation of pregnancy not specified; R10.2 Pelvic and perineal pain
CPT/HCPCS: 59025; 76815; 99211

== ENCOUNTER 2022-04-18 14:35 | Outpatient (CLI) | payer BC, MEDICAID, SELFPAY ==
[2022-04-18 14:54] VITALS: RESP 17
[2022-04-18 14:57] VITALS: BMI 39.3
[2022-04-18 14:59] VITALS: BP 169/71; PULSE 69; TEMP 35.8
[2022-04-18 15:19] VITALS: BP 135/63; PULSE 73
[2022-04-18 15:43] LABS: Nitrazine Paper, PH Negative
[2022-04-18 16:33] LABS: Specific Gravity, Urine 1.015 (1.005-1.030); Urine Appearance Hazy (CLEAR); Urine Color Yellow (Yellow); pH Urine 6.5 (5-7)
[2022-04-18 16:34] LABS: Bacteria Urine 1+ /hpf; Bilirubin Urine Neg (Negative); Blood Urine Neg (Negative); Glucose Urine UA Norm (Normal); Ketones Urine 2+ (Negative); Leukocyte Esterase Urine Negative (Negative); Nitrate Urine Negative (Negative); Protein Urine Neg (Negative); RBC Urine 0-4 /hpf (0-2); Squamous Epithelial Cell Urine 15-25 /hpf (0-5); Urobilinogen Urine Norm (Negative)
[2022-04-18 17:47] VITALS: BP 135/63; PULSE 73; RESP 18
== END 2022-04-18 17:25 | disposition home or self-care (01) ==
LOC: OPOB 14:42 → OBGYN 14:51
PROVIDERS: PCP Family Medicine; Visit Provider Family Medicine
DX: O26.899 Other specified pregnancy related conditions, unspecified trimester (principal); Z3A.00 Weeks of gestation of pregnancy not specified; R10.9 Unspecified abdominal pain
CPT/HCPCS: 59025; 81001; 83986; 99211

== ENCOUNTER 2022-04-22 01:00 | Inpatient (IN) | payer BC, MEDICAID, SELFPAY ==
[2022-04-22] VITALS (77 sets, daily range): BP systolic 102–156; BP diastolic 49–87; PULSE 55–93; RESP 16–20; TEMP 36.3–36.6; O2SAT 94–99; BMI 39.2
[2022-04-22 01:26] LABS: Basophils % 0.2 %; Eosinophils # 0.1 10^3/uL (0.0-0.8); Eosinophils % 0.5 %; Hematocrit 37.2 % (37.0-47.0); Hemoglobin 11.8 g/dL (11.5-15.3); Lymphocytes # 2.8 10^3/uL (0.8-4.8); Lymphocytes % 20.3 %; Mean Corpuscular HGB Conc 31.7 g/dL (30.0-36.0); Mean Corpuscular Hemoglobin 28.4 pg (28.0-34.0); Mean Corpuscular Volume 89.6 fl (81-99); Mean Platelet Volume 10.2 fL (7.4-10.4); Monocytes # 0.8 10^3/uL (0.2-0.9); Monocytes % 5.8 %; Neutrophils # 10.01 10^3/uL (1.8-7.7); Neutrophils % 72.3 %; Nucleated Red Blood Cells % 0 %; Platelet Count 338 10^3/cmm (130-400); Red Blood Count 4.15 10^6/uL (4.1-5.3); Red Cell Distribution Width 14.9 % (12.1-15.1); White Blood Count 13.8 10^3/uL (4.0-10.0)
[2022-04-22] MEDS: miSOPROStol 100 mcg tablet 25 MCG VAGINAL (01:40)
[2022-04-22 03:43] LABS: Amphetamines Screen Urine Negative (Negative); Barbiturates Screen Urine Negative (Negative); Benzodiazepines Screen Urine Negative (Negative); Cocaine Screen Urine Negative (Negative); Opiate Screen Urine Negative (Negative); PCP Screen Urine Negative (Negative); THC Screen Urine Positive (Negative)
[2022-04-22] MEDS: oxytocin 30 UNIT/500 ML BAG IV (10:03)
[2022-04-22] MEDS: dextrose 5%-lactated ringers 1,000 ML 125 ML IV (10:04)
[2022-04-22] MEDS: fentaNYL 50 mcg/mL INJ 2mL IVP (14:21)
[2022-04-22] MEDS: ondansetron 2 mg/ML SDV 2 mL 4 MG IVP (14:56)
--- NOTE | 2022-04-22 16:20 | ANES.PREANE2 ---
Pre-Anesthetic Assessment Height/Weight: Height 1.83 m Weight 131.088 kg Temp Pulse Resp BP Pulse Ox O2 Del Method 97.8 F 87 18 146/70 94 04/22/22 14:50 04/22/22 16:38 04/22/22 14:50 04/22/22 16:37 04/22/22 16:38 04/22/22 01:48 Preop Diagnosis: IUP epidural Familial anesthetic complications: none Was Beta Kim taken within 24 hours: N/A Was Clonidine taken within 24 hours: N/A Last Intake: 23:45 Social No alcohol and No tobacco Exam alert and oriented x 3 Airway Submandibular: within normal limits Cervical ROM: within normal limits Mallampati: Class II Dentition: full History/ROS No significant history except as noted CV/HEM Hypertension (gestational) None reported Hepatic None reported GI None reported Metabolic None reported Musc/skel None reported Neuropsych None reported Anesthetic Plan ASA status: 3 Anesthesia: Anesthesia Evaluation and MAC Risk of > 500 ml blood loss (7ml/kg in children): No Medications/Allergies Home Medications Medication Instructions Recorded Confirmed Last Taken Type prenat.vits,alison,jxu-holu-xobze 1 tab PO DAILY 11/22/19 04/22/22 04/21/22 History Allergies Allergy/AdvReac Type Severity Reaction Status Date / Time Penicillins Allergy ALGY-Anaphy Verified 04/22/22 01:33 laxis Current Medications Generic Name Dose Route Start Last Admin Trade Name Freq PRN Reason Stop Dose Admin Fentanyl 25 - 100 mcg 04/22/22 01:02 04/22/22 14:21 Fentanyl 50 Mcg/Ml Inj 2ml IVP 25 mcg Q1H PRN Administration SEVERE PAIN Dextrose/Lactated Ringer's 1,000 mls @ 125 mls/hr 04/22/22 01:02 04/22/22 10:04 Dextrose 5%-Lactated Ringers IV 125 mls/hr .Q8H PRN Administration per label comments Oxytocin 30 unit in 500 mls @ 1 mls/hr 04/22/22 09:30 04/22/22 12:05 Pitocin IV 5 milliunit/min .Q24H DOMINGO 5 mls/hr Titration Protocol 1 MILLIUNIT/MIN Ondansetron HCl 4 mg 04/22/22 01:02 04/22/22 14:56 Ondansetron 2 Mg/Ml Sdv 2 Ml IVP 4 mg Q4H PRN Administration NAUSEA AND VOMITING PFSH Anesthesia Family History Other Arthritis Cervical cancer Diabetes Social History Smoking and tobacco status: current every day smoker Female Reproductive History Date of last menstrual period: 09/11/19 : 9 Data Anesthesia : 04/22/22 01:17 Short CBC 04/22/22 Range/Units 01:17 WBC 13.8 H (4.0-10.0) 10^3/uL Hgb 11.8 (11.5-15.3) g/dL Hct 37.2 (37.0-47.0) % MCV 89.6 (81-99) fl Plt Count 338 (130-400) 10^3/cmm Neut % (Auto) 72.3 % Neut # (Auto) 10.01 H (1.8-7.7) 10^3/uL Cardiac Studies: No Data to Display
--- NOTE | 2022-04-22 16:42 | P.ANES_ITS ---
Anesthesia Procedures Procedure/Date: 04/22/22 Epidural: Time Out Performed: Yes Consents Signed: Procedure Consent Consent: from patient, risks and benefits reviewed and patient agrees to proceed Lumbar Level: L3-L4 Epidural position: sitting Epidural procedure: sterile prep of area, 1% lidocaine to numb the area, 18 g needle, negative for p aresthesia passed, test dose given, 1.5% xylocaine 1:200k epi (2% lidocaine with 1:200k epi prepared by pharmacy), placed PCEA, no systemic response, sterile dressing applied and 0.2% Ropiavacaine @ mls/hr (13) Additional Comments: ROJAS at 7.5 taped at 15 a skin.
[2022-04-22] MEDS: lactated ringers 1,000 ML 999 ML IV (16:59)
--- NOTE | 2022-04-22 17:56 | P.HP_ITS ---
Providers/Chief Complaint Admitting Physician: Mavrin Mathias MD Primary Care Provider: Marvin Mathias MD Chief Complaint: IOL HPI ACUTE DIALYSIS NURSE History of Present Illness Elen Hurley is a 26 year old female [id number] who presented to the hospital for induction at 39 weeks estimated gestational age. She has a history of macrosomia. Placed on Cytotec x1 per vagina. An amniotomy was performed. An epidural was placed. She progressed to complete and had an unremarkable delivery of a healthy male . Earlier in her she expressed a desire to have a tubal ligation. We discussed the risks and the alternatives. We discussed the risks of bleeding, infection, and damage to intra-abdominal organs. We also discussed an increased risk of ectopic as well as 1 and 200 chance becoming again after a successful tubal ligation. She expressed understanding of all of these risks and wishes to proceed. Present Details : 9 Para: 4 Date of Last Menstrual Period: 09/11/19 Calculated Date of Delivery: 06/17/20 Gestational Age Based on Last Menstrual Period: 136 Labs Rubella: Immune RPR: Negative GBS: Negative Review of Systems General: Reports: 10 or more systems reviewed and unremarkable except in HPI and below Const: Reports: fatigue; Denies: fever(s) Eyes: Denies: change in vision Card: Denies: chest pain Musc: Reports: back pain Ashok/Lymph: Denies: easy bruising Medications/Allergies Home Medications Medication Instructions Recorded Confirmed Last Taken Type prenat.vits,alison,vas-rusd-tzgih 1 tab PO DAILY 11/22/19 04/22/22 04/21/22 History Allergies Allergy/AdvReac Type Severity Reaction Status Date / Time Penicillins Allergy ALGY-Anaphy Verified 04/22/22 01:33 laxis PFSH ACUTE DIALYSIS NURSE PFSH: Family History Other Arthritis Cervical cancer Diabetes Social History Smoking and tobacco status: current every day smoker Vitals/I&O/Wt Last Vital Signs Temp 97.8 F 04/22/22 14:50 Pulse 80 04/22/22 17:40 Resp 18 04/22/22 14:50 BP 129/58 08/08/22 17:40 Pulse Ox 94 04/22/22 16:38 O2 Del Method 04/22/22 01:48 04/22/22 04/22/22 04/22/22 06:59 14:59 22:59 Intake Total 5.033 / 5.033 Balance 5.033 / 5.033 Weight last 48 hrs Weight 289 lb Weight 289 lb Physical Exam Const: COMMON NORMALS: patient oriented x3 and alert HENMT: COMMON NORMALS: moist oral mucous membranes HEAD & SCALP: normal to inspection Chest: COMMONS NORMALS: normal inspection of the chest Resp: COMMON NORMALS: clear to auscultation bilaterally AUSCULTATION: clear to auscultation bilaterally Cardio: COMMON NORMALS: regular rate and regular rhythm RATE: regular rate RHYTHM: regular rhythm GI: INSPECTION: Yes normal to inspection and Yes other (Gravid) Extremity: COMMON NORMALS: normal to inspection GENERAL: Yes edema (Trace) Neuro: COMMON NORMALS: patient oriented x3, moves all extremities and no sensory deficits noted SENSORIUM/ORIENTATION: Yes alert Psych: COMMON NORMALS: mental status grossly normal Skin: COMMON NORMALS: no rashes or lesions noted GENERAL SKIN EXAM: no rashes or lesions noted Data : 04/22/22 01:17 A&P Assessment and plan (1) Spontaneous vaginal delivery: Routine care. Status: Acute (2) Sterilization consult: Proceed with a tubal ligation tomorrow morning at 7:00. Status: Acute Attestations Medical Necessity Statement*: Routine post vaginal delivery and post tubal care Coding Level of Care Code Acute Sales Operations Assistant for Atul Ellis Diagnoses Spontaneous vaginal delivery O80 Sterilization consult Z30.09
--- NOTE | 2022-04-22 18:17 | PM.DELIVERY ---
Delivery Note: Date of delivery: April 22, 2022 Pre-delivery diagnoses: 1. 26-year-old 9 para 4-0-4-4 at 39 weeks estimated gestational age presenting for induction due to history of macrosomia Post-delivery diagnoses: Status post spontaneous vaginal delivery Procedure: Spontaneous vaginal delivery Delivering Physician: Marvin Mathias Estimated blood loss (mL): 25 Pre-Delivery Course: The patient presented to the hospital for induction. She was placed on Cytotec 25 mcg per vagina x1. An amniotomy was performed. An epidural was performed. She progressed to complete without difficulty. Delivery: DELIVERY: The patient progressed to complete without difficulty. She delivered a male with a weight of 9 pounds 3 ounces with Apgars of 8, 10. The baby was delivered from the LAURA position and placed on the mother's abdomen. The cord was then clamped and cut. There was no nuchal cord. There was no meconium. The placenta and 3 vessel cord were delivered intact shortly thereafter. The perineum and vaginal vault were carefully examined. No lacerations were noted. Both the mother and the baby were in stable condition. Post-Delivery Status: Good Coding Level of Care Code Acute Chemistry Research Assistant for Chg Caleb
[2022-04-22] MEDS: docusate sodium 100 mg Capsule PO (18:52)
[2022-04-22] MEDS: benzocaine-menthol 78 gm Canister 1 SPRAY TOPICAL (18:52)
[2022-04-22] MEDS: lanolin oint 7 gm 1 APPLIC TOPICAL (18:52)
[2022-04-22] MEDS: ibuprofen 800 mg tablet PO (21:11)
[2022-04-23] VITALS (21 sets, daily range): BP systolic 93–136; BP diastolic 48–91; PULSE 49–96; RESP 15–17; TEMP 36.8–37.1; O2SAT 90–98
[2022-04-23] MEDS: HYDROcodone-acetaminophen 5-325 mg Tablet PO ×2 (05:04→15:44)
[2022-04-23 05:13] LABS: Hematocrit 36.8 % (37.0-47.0); Hemoglobin 11.3 g/dL (11.5-15.3); Mean Corpuscular HGB Conc 30.7 g/dL (30.0-36.0); Mean Corpuscular Volume 91.3 fl (81-99); Mean Platelet Volume 10.4 fL (7.4-10.4); Platelet Count 284 10^3/cmm (130-400); Red Blood Count 4.03 10^6/uL (4.1-5.3); Red Cell Distribution Width 15.2 % (12.1-15.1); White Blood Count 10.7 10^3/uL (4.0-10.0)
--- NOTE | 2022-04-23 06:39 | ANES.PAUD2 ---
Documented by User: Karen Campbellison 04/23/22 08:34 Pre-Anesthetic Update Pre-Anesthetic Assessment: Date of Surgery/Procedure: 04/23/22 Preop Diagnosis: IUP Proposed Procedure: Operation Date: 04/23/22 07:10 Proposed Procedures p Post Bilateral Tubal Ligation(Bilateral) - Marvin Mathias MD Any changes to Pre-Anesthetic Assessment?: No Last Intake: 04/22/22: @2200 Labs Last 48hrs: Short CBC 04/22/22 04/23/22 Range/Units 01:17 05:10 WBC 13.8 H 10.7 H (4.0-10.0) 10^3/ uL Hgb 11.8 11.3 L (11.5-15.3) g/dL Hct 37.2 36.8 L (37.0-47.0) % MCV 89.6 91.3 (81-99) fl Plt Count 338 284 (130-400) 10^3/c mm Neut % (Auto) 72.3 % Neut # (Auto) 10.01 H (1.8-7.7) 10^3/u L Vitals: Temperature 97.8 F 04/22/22 14:50 Temperature Source Temporal Artery S can 04/22/22 14:50 Pulse Rate 56 L 04/23/22 03:28 Pulse Rhythm 04/22/22 01:48 Pulse Strength 3+ Normal 04/22/22 01:48 Respiratory Rate 16 04/23/22 03:28 Respiratory Effort Non-Labored 04/22/22 14:21 Respiratory Depth Normal 04/22/22 14:21 Respiratory Patter n 04/22/22 14:21 Blood Pressure 123/91 04/23/22 03:28 Blood Pressure Venus n 101 04/23/22 03:28 Blood Pressure Pos ition Semi Fowlers 04/23/22 03:28 Pulse Oximetry 98 04/23/22 03:28 Oxygen Delivery Me thod 04/23/22 03:28 Exam: Pre-Anes Outpt Exam: alert, oriented x 3, clear to auscultation bilaterally and regular rate & rhythm Cardiac Studies: No Data to Display Documented by User: Pedro Wyatt DO 04/23/22 09:10 Pre-Anesthetic Update Pre-Anesthetic Assessment: Date of Surgery/Procedure: 04/23/22 Cardiac Studies: No Data to Display
--- NOTE | 2022-04-23 06:50 | P.DS_ITS ---
Discharge Providers ROAD PRODUCTION GENERAL MANAGER Date of Admission: 04/22/22 01:00 Date of Discharge: 04/23/22 Attending Provider at Admission: Marvin Mathias MD Attending Provider at Discharge: Marvin Mathias MD Primary Care Provider: Marvin Mathias MD Diagnoses at Discharge Discharge Diagnosis (1) Spontaneous vaginal delivery: Status: Acute (2) Sterilization consult: Status: Acute Reason for Visit Reason for Visit: IOL Hospital Course Hospital Course The patient presented for induction at 39 weeks due to history of macrosomia. She was placed on Cytotec x1. An amniotomy was performed. An epidural was placed. She progressed to complete and had an unremarkable vaginal delivery. Her course was also unremarkable. Her bleeding was within normal limits. Her pain was well controlled. A tubal ligation was performed. There were no complications. Information Peripartum Data: Delivery Method: Vaginal Physical Exam Narrative: The patient is alert. She appears comfortable. Her heart has a regular rate and rhythm with no murmurs appreciated. Lungs are clear to auscultation bilaterally. Her fundus is firm and below the umbilicus. Her dressing is clean dry and intact. Discharge Data Studies Completed and Pending Laboratory Results WBC 10.7 10^3/uL (4.0-10.0) H 04/23/22 05:10 RBC 4.03 10^6/uL (4.1-5.3) L 04/23/22 05:10 Hgb 11.3 g/dL (11.5-15.3) L 04/23/22 05:10 Hct 36.8 % (37.0-47.0) L 04/23/22 05:10 MCV 91.3 fl (81-99) 04/23/22 05:10 MCH 28.0 pg (28.0-34.0) 04/23/22 05:10 MCHC 30.7 g/dL (30.0-36.0) 04/23/22 05:10 RDW 15.2 % (12.1-15.1) H 04/23/22 05:10 Plt Count 284 10^3/cmm (130-400) 04/23/22 05:10 MPV 10.4 fL (7.4-10.4) 04/23/22 05:10 Neut % (Auto) 72.3 % 04/22/22 01:17 Lymph % (Auto) 20.3 % 04/22/22 01:17 [place] % (Auto) 5.8 % 04/22/22 01:17 Eos % (Auto) 0.5 % 04/22/22 01:17 Baso % (Auto) 0.2 % 04/22/22 01:17 Neut # (Auto) 10.01 10^3/uL (1.8-7.7) H 04/22/22 01:17 Lymph # (Auto) 2.8 10^3/uL (0.8-4.8) 04/22/22 01:17 [place] # (Auto) 0.8 10^3/uL (0.2-0.9) 04/22/22 01:17 Eos # (Auto) 0.1 10^3/uL (0.0-0.8) 04/22/22 01:17 Baso # (Auto) 0.0 10^3/uL (0.0-0.1) 04/22/22 01:17 Nucleated RBC % (auto) 0 % 04/22/22 01:17 Nucleated RBCs # 0.0 /100WBC 04/22/22 01:17 Urine Opiates Screen Negative ng/mL (Negative) 04/22/22 02:15 Ur Barbiturates Screen Negative ng/mL (Negative) 04/22/22 02:15 Ur Phencyclidine Scrn Negative ng/mL (Negative) 04/22/22 02:15 Ur Amphetamines Screen Negative ng/mL (Negative) 04/22/22 02:15 U Benzodiazepines Scrn Negative ng/mL (Negative) 04/22/22 02:15 Urine Cocaine Screen Negative ng/mL (Negative) 04/22/22 02:15 U Marijuana (THC) Screen Positive ng/mL (Negative) H 04/22/22 02:15 Vitals Last Vital Signs Temp 97.8 F 04/22/22 14:50 Pulse 56 L 04/23/22 03:28 Resp 16 04/23/22 03:28 BP 123/91 04/23/22 03:28 Pulse Ox 98 04/23/22 03:28 O2 Del Method 04/23/22 03:28 Discharge Plan Discharge Patient Disposition: Home Condition: Stable Prescriptions: New ibuprofen 800 mg Tablet 800 mg PO TID Qty: 45 0RF hydrocodone-acetaminophen 5-325 mg Tablet 1 tab PO Q6H PRN (Reason: Moderate To Severe Pain) Qty: 10 0RF Continued prenat.vits,alison,cnd-nlwa-phzpz Tablet 1 tab PO DAILY Discharge Orders: Discharge Order (Routine); Ordered 04/23/22 Ordered By: Marvin Mathias Discharge Diet: Usual diet Discharge Activity: Limit activity as instructed Patient Instructions: Hydrocodone/Acetaminophen (By mouth) (Vicodin, [place], Lortab), Bleeding (DC), Preeclampsia and Eclampsia After Delivery (GEN), Tubal Ligation (DC), OB Discharge Report, OB Anesthesia Instructions, OB Food/Drug Interaction Guide, OB Care at Home, Opioid Safety, OB Vaginal Deliveries Discharge Attestations ROAD PRODUCTION GENERAL MANAGER Time Spent in Discharge Care*: less than 30 min Coding Level of Care Code Acute Armed Security Professional for Chg Fwd Diagnoses Spontaneous vaginal delivery O80 Sterilization consult Z30
[2022-04-23] MEDS: metoclopramide 5 mg/mL SDV 2 mL 10 MG IVP (07:05)
[2022-04-23] MEDS: citric acid-sodium citrate 30 mL UDC PO (07:05)
[2022-04-23] MEDS: famotidine 20 mg/2 mL INJ IVP (07:05)
--- NOTE | 2022-04-23 08:10 | P.OP_ITS ---
Operative Report Date of procedure: April 23, 2022 Pre-op diagnosis: female desiring sterilization Post-op diagnosis: Status post bilateral tubal ligation Procedure done: minilaparotomy bilateral tubal ligation using a modified [place] technique Specimens removed/disposition: Bilateral fallopian tube segments with the right segment being tagged Pathology: Bilateral fallopian tube segments with the right segment being tagged Surgeon: Marvin Mathias Estimated blood loss (mL): 10 Complications: None Procedure: The patient was brought back to the operating room where anesthesia was found to be adequate. 10 mL of 0.5% bupivacaine was then used to pre-anesthetize the area just inferior to the umbilicus. A #15 blade was then used to make a 3 cm transverse incision just inferior to the umbilicus. I then dissected down to t he underlying subcutaneous tissue until arriving at the fascia. The fascia was then nicked with the scalpel. The fascial incision was extended manually. I identified the fundus of the uterus and followed it to the left fallopian tube. The fallopian tube was then followed to the fimbria. The tube was then ligated, cut, and cauterized in a modified [place] fashion using 0 chromic. The right fa llopian tube was then identified and followed through to the fimbria. It was ligated, cut, and cauterized in similar fashion. The right fallopian tube was tagged. Both fallopian tubes had excellent hemostasis. The fascia was reapproximated using 0 Vicryl in running stitch. The subcutaneous tissue was carefully examined and no further bleeding was noted. The skin was then reapproximated using 4-0 Vicryl in a running subcuticular stitch. A sterile dressing was placed. All counts were correct x2. The patient was moved to the recovery room in stable condition.
[2022-04-23] MEDS: cetylpyridinium Lozenge 1 EACH MUCOUS MEM (09:22)
[2022-04-23] MEDS: HYDROcodone-acetaminophen 5-325 mg Tablet 2 TAB PO (09:22)
--- NOTE | 2022-04-23 14:28 | ANE.PACU2 ---
Inpatient post-anesthesia follow up: Airway intact: Yes Vital signs: Temperature 98.6 F Pulse Rate 81 Respiratory Rate 17 Blood Pressure 116/69 Pulse Oximetry 98 Oxygen Delivery Me thod Room Air Oxygen Flow Rate Fraction of Inspir ed Oxygen Hydration adequate: Yes Nausea and vomiting: No Pain level: 1 Mental status: Baseline
[2022-04-23] MEDS: ibuprofen 800 mg tablet PO (16:59)
[2022-04-23] MEDS: docusate sodium 100 mg Capsule PO (18:27)
== END 2022-04-23 20:20 | disposition home or self-care (01) | DRG 798 ==
LOC: OPOB 01:01 → OBGYN 01:01
PROVIDERS: Admitting Provider Family Medicine; PCP Family Medicine; Visit Provider Family Medicine
PROC: 0UB70ZZ Excision of Bilateral Fallopian Tubes, Open Approach (ICD-10-PCS; CPT 58605; principal; 2022-04-23 07:00)
DX: O36.63X0 Maternal care for excessive fetal growth, third trimester, not applicable or unspecified (principal); Z37.0 Single live birth; O99.334 Smoking (tobacco) complicating childbirth; F17.200 Nicotine dependence, unspecified, uncomplicated; Z3A.39 39 weeks gestation of pregnancy; Z30.2 Encounter for sterilization
CPT/HCPCS: 12345; 36415; 58605; 59025; 59409; 80306; 85025; 85027; 88302; 96374; 96375; 99211; J2405; J2765; J2795; J3010; J3490

== ENCOUNTER → 2023-07-22 14:57 | Outpatient (BNVA) | payer BC, MEDICAID, SELFPAY | PROVIDERS: PCP Family Medicine; Visit Provider Obstetrics & Gynecology | DX: Z32.00 Encounter for pregnancy test, result unknown (principal); Z3A.00 Weeks of gestation of pregnancy not specified | CPT/HCPCS: 81025 ==

== ENCOUNTER 2023-09-30 09:57 | Emergency (ER) | payer BC, MEDICAID, SELFPAY ==
[2023-09-30 10:12] VITALS: BP 149/84; PULSE 76; RESP 18; TEMP 36.7; O2SAT 100
--- NOTE | 2023-09-30 10:18 | US_ITS ---
WS: [id number] US OB transvaginal [id number] HISTORY: -unknown dates; vaginal bleeding; hx tubal COMPARISON: None available. Uterus: 9.7 cm x 4.9 cm x 6.1 cm. Normal size anteverted uterus. No fibroid or mass. Endometrium: 0.7 cm. Normal. No gestational sac. No endometrial hyperplasia or thickening. Right ovary: 2.0 cm x 3.4 cm x 3.1 cm. Normal size and vascularity, no cystic or solid masses. Left ovary: 2.6 cm x 3.3 cm x 1.8 cm. Normal size and vascularity, no cystic or solid masses. No free fluid in the cul-de-sac. IMPRESSION: 1. No intrauterine gestation. 2. Normal endometrium. 3. No adnexal mass to suggest an ectopic . 4. Note: If there is a positive beta hCG ectopic is not excluded.
--- NOTE | 2023-09-30 10:19 | W.ED.FEMALGU ---
HPI - Female Genitourinary General: Chief complaint: Vaginal Bleeding Stated complaint: abd pain, vaginal bleeding, preg unknown weeks Time Seen by Provider: 09/30/23 09:58 Source: patient Mode of arrival: ambulatory Limitations: no limitations History of Present Illness: Patient is a 28-year-old presumably female who presents to ED today with complaints of vaginal bleeding, pelvic pain/cramping, lower back pain. Patient tells me she had a positive home test back in July. She states was later confirmed at a women's clinic in [facility]. She states LMP is unknown as her menstrual cycles started to be irregular starting in May. Patient reports history of a tubal ligation. She reportedly has had a full-term since the tubal. 5 previous live births. Patient states she began having vaginal bleeding yesterday and is passing clots. She states since she awoke today she has went through 2 pads. She is complaining of pelvic pain/cramping as well as lower back pain. MD elicited complaint: vaginal bleeding, pelvic pain, possible miscarriage and suspected Pertinent past history: tubal ligation Onset (ago): day(s) (yesterday) Location of symptoms: pelvis and low back Severity: moderate Female Urogenital Radiation: Non-Radiating Quality of pain: cramping Consistency: constant Vaginal discharge: none Vaginal bleeding: moderate and clots Exacerbating factors: none Relieving factors: none Associated symptoms: Reports abdominal pain; Deny headache(s) or nausea Treatment prior to arrival: none Sexual activity: Yes Patient : Yes Possible : at home test positive Review of Systems Const: Denies: fever(s), chills, body aches, fatigue or malaise Card: Denies: chest pain Resp: Denies: dyspnea GI: Reports: abdominal pain; Denies: nausea, vomiting or diarrhea : Reports: vaginal bleeding, irregular period and pelvic pain; Denies: flank pain, difficulty voiding, dysuria, urinary frequency, urinary urgency, urinary hesitancy, genital lesions or genital pruritis Musc: Reports: back pain Skin/Breast: Denies: rash Neuro: Denies: headache(s) or dizziness PFSH ED PFSH: Family History Other Arthritis Cervical cancer Diabetes Social History (Reviewed 09/30/23 @ 10:21 by LIEN Davenport Smoking and tobacco/nicotine status: current every day tobacco/nicotine user Physical Exam Const: COMMON NORMALS: no acute distress, patient oriented x3, no limitations, alert and well nourished GENERAL APPEARANCE: cooperative NUTRITIONAL APPEARANCE: obese morbidly obese ORIENTATION/CONSCIOUSNESS: Yes awake, Yes oriented to person, Yes oriented to place and Yes oriented to time Eye: COMMON NORMALS: no scleral icterus Chest: COMMONS NORMALS: normal inspection of the chest and normal palpation of entire chest wall Resp: COMMON NORMALS: normal respiratory effort and clear to auscultation bilaterally AUSCULTATION: clear to auscultation bilaterally Cardio: COMMON NORMALS: regular rate and regular rhythm RATE: regular rate RHYTHM: regular rhythm GI: COMMON NORMALS: Normal to inspection, nondistended, normoactive bowel sounds present, Soft to palpation, No hepatosplenomegaly present and no masses INSPECTION: Yes normal to inspection AUSCULTATION: Yes normoactive bowel sounds PALPATION: Yes Soft to palpation, Yes Tenderness to palpation present (GI) (lower abdomen/pelvis), No Guarding due to palpation present (GI), No Rigid due to palpation and Yes No hepatosplenomegaly present : COMMON NORMALS: Yes no CVA tenderness BLADDER/KIDNEY EXAM: Yes no CVA tenderness Back/Pelvis: COMMON NORMALS: no CVA tenderness and thoracic and lumbar spine normal to inspection Extremity: COMMON NORMALS: normal to inspection GENERAL: Yes normal exam except as noted Neuro: TRAM COMA SCALE: document GCS findings Tram coma scale eye opening: Spontaneous [place] coma scale verbal response: Orientated [place] coma scale motor response: Obey commands Tram coma scale total score: 15 COMMON NORMALS: patient oriented x3, moves all extremities, no focal motor deficits and no sensory deficits noted SENSORIUM/ORIENTATION: Yes alert, Yes oriented to person, Yes oriented to place and Yes oriented to time Skin: COMMON NORMALS: no rashes or lesions noted GENERAL SKIN EXAM: no rashes or lesions noted Course Vital Signs: Vital signs: Vital Signs Temperature 98.1 F 09/30/23 10:12 Pulse Rate 76 09/30/23 10:12 Respiratory Rate 18 09/30/23 10:12 Blood Pressure 149/84 09/30/23 10:12 Pulse Oximetry 100 09/30/23 10:12 Oxygen Delivery Me thod Room Air 09/30/23 10:12 MDM - Female Medical Decision Making Patient is a 28-year-old female here for heavy bleeding with clots while presumably . She tells me she had her confirmed at a women's clinic back in mid July. She reportedly has not had any bleeding since then until yesterday. She does have a history of tubal ligation. Because of this ultrasound was initially ordered. This was completed early in her ED stay prior to blood work returning. Her ultrasound was essentially unremarkable. Later, when blood work returned, it was found her serum quantitative hCG was 1.0. Explained to patient results. This most likely is a normal menstrual cycle. Patient will be allowed discharge. Recommend follow-up with primary care and/or gynecology if periods continue to be irregular or heavy. Return ED precautions given. Medical Records I reviewed the patient's medical records. Lab Data I reviewed the patient's lab results. 09/30/23 11:02 09/30/23 11:02 Laboratory Results WBC 8.24 10^3/uL (3.29-11.43) 09/30/23 11:02 RBC 4.93 10^6/uL (3.85-5.65) 09/30/23 11:02 Hgb 14.70 g/dL (11.27-16.99) 09/30/23 11:02 Hct 46.7 % (36-47) 09/30/23 11:02 MCV 94.7 fl (85-98) 09/30/23 11:02 MCH 29.8 pg (27-33) 09/30/23 11:02 MCHC 31.5 g/dL (30-55) 09/30/23 11:02 RDW 13.2 % (12.1-15.1) 09/30/23 11:02 Plt Count 417 10^3/cmm (157-399) H 09/30/23 11:02 MPV 9.3 fL (7.4-10.4) 09/30/23 11:02 Neut % (Auto) 65.5 % 09/30/23 11:02 Lymph % (Auto) 26.2 % 09/30/23 11:02 [place] % (Auto) 4.7 % 09/30/23 11:02 Eos % (Auto) 3.0 % 09/30/23 11:02 Baso % (Auto) 0.5 % 09/30/23 11:02 Neut # (Auto) 5.39 10^3/uL (1.8-7.7) 09/30/23 11:02 Lymph # (Auto) 2.2 10^3/uL (0.8-4.8) 09/30/23 11:02 [place] # (Auto) 0.4 10^3/uL (0.2-0.9) 09/30/23 11:02 Eos # (Auto) 0.3 10^3/uL (0.0-0.8) 09/30/23 11:02 Baso # (Auto) 0.0 10^3/uL (0.0-0.1) 09/30/23 11:02 Nucleated RBC % (auto) 0 % 09/30/23 11:02 Nucleated RBCs # 0.0 /100WBC 09/30/23 11:02 Sodium 139 mmol/L (136-145) 09/30/23 11:02 Chloride 105 mmol/L (98-107) 09/30/23 11:02 Carbon Dioxide 22 mmol/L (22-29) 09/30/23 11:02 BUN 10 mg/dL (6-20) 09/30/23 11:02 Creatinine 0.6 mg/dL (0.5-0.9) 09/30/23 11:02 GFR Calculation 118.2 mL/min (90-130) 09/30/23 11:02 Glucose 92 mg/dL (65-115) 09/30/23 11:02 Calculated Osmolality 287 mOsm/kg (285-295) 09/30/23 11:02 Calcium 9.9 mg/dL (8.5-10.5) 09/30/23 11:02 Total Bilirubin 0.2 mg/dL (0.15-1.2) 09/30/23 11:02 ALT 17 U/L (0-33) 09/30/23 11:02 Alkaline Phosphatase 98 U/L (35-105) 09/30/23 11:02 Total Protein 8.2 g/dL (6.6-8.7) 09/30/23 11:02 Albumin 4.2 g/dL (3.5-5.2) 09/30/23 11:02 Globulin 4.0 g/dL (1.3-4.6) 09/30/23 11:02 Lipase 23 U/L (13-60) 09/30/23 11:02 Ser , Semi-Qnt 1.00 mIU/mL 09/30/23 11:02 Urine Color [place] (Yellow) 09/30/23 10:42 Urine Appearance Hazy (CLEAR) A 09/30/23 10:42 Urine pH 7 (5-7) 09/30/23 10:42 Ur Specific [place] 1.005 (1.005-1.030) 09/30/23 10:42 Urine Protein Trace (Negative) 09/30/23 10:42 Urine Glucose (UA) Norm (Normal) 09/30/23 10:42 Urine Ketones Negative (Negative) 09/30/23 10:42 Urine Blood 3+ (Negative) H 09/30/23 10:42 Urine Nitrate Negative (Negative) 09/30/23 10:42 Urine Bilirubin Neg (Negative) 09/30/23 10:42 Urine Urobilinogen Norm mg/dL (Negative) 09/30/23 10:42 Ur Leukocyte Esterase Trace (Negative) H 09/30/23 10:42 Urine RBC Too numerous to cnt /hpf (0-2) H 09/30/23 10:42 Urine WBC 0-4 /hpf (0-5) H 09/30/23 10:42 Ur Squamous Epith Cells 5-10 /hpf (0-5) H 09/30/23 10:42 Ur Transition Epith Cell 0-4 /hpf 09/30/23 10:42 Amorphous Sediment Not Reportable 09/30/23 10:42 Urine Bacteria None /hpf (NONE) 09/30/23 10:42 Urine Mucus None /hpf 09/30/23 10:42 All radiology interpretation(s) finalized by discharge Discharge Plan Discharge Patient Disposition: Home Clinical Impression: Abnormal menstrual periods Condition: Stable Prescriptions: No Action ibuprofen 600 mg tablet 600 mg PO TID PRN (Reason: pain) Qty: 20 0RF Discharge Orders: Discharge ED (Routine); Ordered 09/30/23 Ordered By: Dayna Tabares Activity Restrictions/Additional Instructions: As we discussed your hCG level showing you are not today. Your ultrasound was normal. If menstrual cycles continue to be irregular and heavy you may follow-up with your primary care provider or account services representative. Coding Level of Care Code ED Occupational Therapy Technician for Chg Fwd
[2023-09-30 11:02] LABS: Add Urine Microscopic? YES; Bilirubin Urine Neg (Negative); Blood Urine 3+ (Negative); Glucose Urine UA Norm (Normal); Ketones Urine Negative (Negative); Leukocyte Esterase Urine Trace (Negative); Nitrate Urine Negative (Negative); Protein Urine Trace (Negative); Specific Gravity, Urine 1.005 (1.005-1.030); Urine Appearance Hazy (CLEAR); Urine Color Amber (Yellow); Urobilinogen Urine Norm (Negative); pH Urine 7 (5-7)
[2023-09-30 11:08] LABS: Basophils % 0.5 %; Eosinophils # 0.3 10^3/uL (0.0-0.8); Hematocrit 46.7 % (36-47); Lymphocytes # 2.2 10^3/uL (0.8-4.8); Lymphocytes % 26.2 %; Mean Corpuscular HGB Conc 31.5 g/dL (30-55); Mean Corpuscular Hemoglobin 29.8 pg (27-33); Mean Corpuscular Volume 94.7 fl (85-98); Mean Platelet Volume 9.3 fL (7.4-10.4); Monocytes # 0.4 10^3/uL (0.2-0.9); Monocytes % 4.7 %; Neutrophils # 5.39 10^3/uL (1.8-7.7); Neutrophils % 65.5 %; Nucleated Red Blood Cells % 0 %; Platelet Count 417 10^3/cmm (157-399); Red Blood Count 4.93 10^6/uL (3.85-5.65); Red Cell Distribution Width 13.2 % (12.1-15.1); White Blood Count 8.24 10^3/uL (3.29-11.43)
[2023-09-30 11:16] LABS: RBC Urine TOO NUMEROUS TO CNT /hpf (0-2)
[2023-09-30 11:17] LABS: Add Urine Culture? No; Transitional Epi Cells Urine 0-4 /hpf; WBC Urine 0-4 /hpf (0-5)
[2023-09-30 11:48] LABS: Alanine Aminotransferase 17 U/L (0-33); Albumin Level 4.2 g/dL (3.5-5.2); Alkaline Phosphatase 98 U/L (35-105); Blood Urea Nitrogen 10 mg/dL (6-20); Calcium 9.9 mg/dL (8.5-10.5); Carbon Dioxide 22 mmol/L (22-29); Chloride 105 mmol/L (98-107); Glomerular Filtration Rate 118.2 mL/min (90-130); Glucose 92 mg/dL (65-115); Lipase 23 U/L (13-60); Osmolality Calculated 287 mOsm/kg (285-295); Sodium 139 mmol/L (136-145); Total Bilirubin 0.2 mg/dL (0.15-1.2); Total Protein 8.2 g/dL (6.6-8.7)
[2023-09-30 12:27] LABS: Anion Gap 16.3 (5-19); Aspartate Amino Transferase 24 U/L (0-32); HCG Quantitative < 1.00 mIU/mL; Potassium 4.3 mmol/L (3.5-5.1)
== END 2023-09-30 11:57 | disposition home or self-care (01) ==
PROVIDERS: Emergency Provider Physician Assistant
DX: N92.6 Irregular menstruation, unspecified (principal); Z72.0 Tobacco use
CPT/HCPCS: 36415; 76817; 80053; 81001; 83690; 84702; 85025; 99284

== ENCOUNTER 2024-04-21 14:46 | Outpatient (CLI) | payer BC, MEDICAID, SELFPAY | END 2024-04-21 14:47 | disposition home or self-care (01) | LOC: LAB 14:53 | PROVIDERS: Visit Provider Family Medicine | DX: Z34.80 Encounter for supervision of other normal pregnancy, unspecified trimester (principal) | CPT/HCPCS: 84702 ==

== ENCOUNTER 2025-01-28 11:39 | Outpatient (CLI) | payer BC, MEDICAID, SELFPAY ==
--- NOTE | 2025-01-28 11:43 | XR_ITS ---
WS: [id number] Exam: XR chest 2V* [id number] Date/Time of Exam: 01/28/2025 11:43 AM Reason For Exam: COUGH Comparison 9 08/04/2019. Lungs are fully inflated and clear. Normal cardiomediastinal silhouette. Bony structures are intact. No pleural effusion. Impression negative chest.
== END 2025-01-28 11:40 | disposition home or self-care (01) ==
LOC: RAD 11:42
PROVIDERS: PCP Nurse Practitioner Family; Visit Provider Nurse Practitioner Family
DX: R05.9 Cough, unspecified (principal)
CPT/HCPCS: 71046